=== PATIENT | female | born 1970 | race Caucasian/White ===

== ENCOUNTER 2016-10-14 22:02 | Emergency (ER) | payer BC ==
[2016-10-14] MEDS ORDERED: Phenergan 25 MG INJ IM ONE (22:29)
[2016-10-14] MEDS ORDERED: Hydromorphone 1 mg/ml Ampule IM ONE (22:29)
--- NOTE | 2016-10-14 22:35 | ERPHSYRPT ---
- History of Present Illness Time Seen by Provider: 10/14/16 22:24 Historian: patient Exam Limitations: no limitations Patient Subjective Stated Complaint: SITTING AT HOME TYPING ON COMPUTER WHEN CRAMPING BEGAN, STATES FEELS LIKE SHE IS SITTING ON A BASEBALL BAT Triage Nursing Assessment: PT AOX3, AMBULATED TO COT WITHOUT ANY DIFFICULTIES, PUPILS PERRL, RADIAL PULSES STRONG AND EQUAL, BOWEL SOUNDS NORMOACTIVEX4 Physician History: ABOUT 90 MINUTES AGO PT STARTED WITH SHARP LOWER MID ABDOMINAL/PELVIC PAIN WITH NAUSEA. LBM WAS TONIGHT & WNL. PT DENIES FEVER, CHEST PAIN, SHORTNESS OF AIR; ADMITS TO CHRONIC COUGH.L LMP = 1.5 WEEKS AGO. Allergies/Adverse Reactions: No Known Drug Allergies Allergy (Verified 10/14/16 22:15) Hx Tetanus, Diphtheria Vaccination/Date Given: Yes Hx Influenza Vaccination/Date Given: Yes Hx Pneumococcal Vaccination/Date Given: Yes Immunizations Up to Date: Yes - Review of Systems Constitutional: No Fever Respiratory: Cough, No Dyspnea Cardiac: No Chest Pain Abdominal/Gastrointestinal: Abdominal Pain, Nausea All Other Systems: Reviewed and Negative - Past Medical History Pertinent Past Medical History: No - Past Surgical History Past Surgical History: Yes Female Surgical History: Section - Social History Smoking Status: Current every day smoker Drug Use: none Patient Lives Alone: No - Nursing Vital Signs Nursing Vital Signs: Initial Vital Signs Temperature 98.7 F Temperature Source Oral Pulse Rate 94 Respiratory Rate 16 Blood Pressure [] 122/58 Pain Intensity 0 - Physical Exam General Appearance: alert Eye Exam: PERRL/EOMI Ears, Nose, Throat Exam: TMs normal, pharynx normal, moist mucous membranes Neck Exam: normal inspection Respiratory Exam: airway intact Cardiovascular Exam: normal heart sounds Gastrointestinal/Abdomen Exam: soft, normal bowel sounds, tenderness (MINIMAL SUPRAPUBIC TENDERNESS) Back Exam: normal inspection Extremity Exam: normal inspection, No pedal edema Neurologic Exam: alert, cooperative Skin Exam: warm, dry SpO2 Interpretation: normal SpO2: 97 Oxygen Delivery: Room Air - Course Nursing assessment & vital signs reviewed: Yes - CT Exams Abdomen/Pelvis CT Interpretation: Tele-radiologist Report (NO ACUTE FINDINGS) - Radiology Ultrasound Exam Pelvis Ultrasound: Other (TECH REPORT: NO OVARIAN TORSION.) Ordered Tests: Active Orders 24 hr Category Date Time Status ABDOMEN AND PELVIS W/0 CONTRAS [CT] Stat Exams 10/14/16 23:02 Taken PELVIC [US] Stat Exams 10/15/16 00:24 Taken AMYLASE Stat Lab 10/14/16 22:55 Completed CBC W DIFF Stat Lab 10/14/16 22:55 Completed CMP Stat Lab 10/14/16 22:55 Completed HCG QUALITATIVE,SERUM Stat Lab 10/14/16 22:55 Completed LIPASE Stat Lab 10/14/16 22:55 Completed UA Stat Lab 10/14/16 22:00 Completed Medication Summary Discontinued Medications Generic Name Dose Route Start Last Admin Trade Name Naila PRN Reason Stop Dose Admin Hydromorphone HCl 1 mg 10/14/16 22:29 10/14/16 22:45 Hydromorphone 1 Mg/Ml Ampule IM 10/14/16 22:30 1 mg STAT ONE Administration Hydromorphone HCl Confirm 10/14/16 22:37 Hydromorphone 1 Mg/Ml Ampule Administered 10/14/16 22:38 Dose 1 mg .ROUTE .STK-MED ONE Promethazine HCl 25 mg 10/14/16 22:29 10/14/16 22:41 Phenergan 25 Mg Inj IM 10/14/16 22:30 25 mg STAT ONE Administration Promethazine HCl Confirm 10/14/16 22:37 Phenergan 25 Mg Inj Administered 10/14/16 22:38 Dose 25 mg .ROUTE .STK-MED ONE Lab/Rad Data: Laboratory Result Diagrams 10/14/16 22:55 10/14/16 22:55 Laboratory Results 10/14/16 10/14/16 10/14/16 Range/Units 22:55 22:55 22:55 WBC 11.0 H (4.0-10.5) K/mm3 RBC 5.27 (4.1-5.4) M/mm3 Hgb 14.5 (12.0-16.0) gm/dl Hct 44.2 (35-47) % MCV 83.9 (78-100) fl MCH 27.5 (26-32) pg MCHC 32.8 (32-36) g/dl RDW 14.9 H (11.5-14.0) % Plt Count 253 (150-450) K/mm3 MPV 12.2 H (6-9.5) fl Gran % 68.6 H (36.0-66.0) % Lymphocytes % 21.1 L (24.0-44.0) % Monocytes % 6.2 (0.0-12.0) % Eosinophils % 3.6 (0.00-5.0) % Basophils % 0.5 (0.0-0.4) % Basophils # 0.06 (0-0.4) Sodium 135 L (136-145) mEq/L Potassium 4.2 (3.5-5.1) mEq/L Chloride 100 (98-107) mEq/L Carbon Dioxide 25.2 (21-32) mEq/L Anion Gap 13.9 (5-15) MEQ/L BUN 13 (9-20) mg/dL Creatinine 0.89 (0.55-1.30) mg/dl Estimated GFR > 60 ML/MIN Glucose 303 H (70-110) MG/DL Calcium 8.8 (8.5-10.1) mg/dL Total Bilirubin 0.1 L (0.2-1.0) mg/dL AST 27 (15-37) U/L ALT 47 (12-78) U/L Alkaline Phosphatase 92 (46-116) U/L Serum Total Protein 7.7 (6.4-8.2) gm/dL Albumin 3.4 (3.4-5.0) g/dL Amylase 50 (25-115) U/L Lipase 222 (73-393) U/L Serum , Qual NEGATIVE (Negative) Ur Collection Type Urine Color (YELLOW) Urine Appearance (CLEAR) Urine pH (5-6) Ur Specific Cameron (1.005-1.025) Urine Protein (Negative) Urine Glucose (UA) (NEGATIVE) mg/dL Urine Ketones (NEGATIVE) Urine Nitrite (NEGATIVE) Urine Bilirubin (NEGATIVE) Urine Urobilinogen (0-1) mg/dL Urine WBC (Auto) (NEGATIVE) Urine RBC (Auto) (0-5) Kelvin/ul Specimen Received 10/14/16 Range/Units 22:00 WBC (4.0-10.5) K/mm3 RBC (4.1-5.4) M/mm3 Hgb (12.0-16.0) gm/dl Hct (35-47) % MCV (78-100) fl MCH (26-32) pg MCHC (32-36) g/dl RDW (11.5-14.0) % Plt Count (150-450) K/mm3 MPV (6-9.5) fl Gran % (36.0-66.0) % Lymphocytes % (24.0-44.0) % Monocytes % (0.0-12.0) % Eosinophils % (0.00-5.0) % Basophils % (0.0-0.4) % Basophils # (0-0.4) Sodium (136-145) mEq/L Potassium (3.5-5.1) mEq/L Chloride (98-107) mEq/L Carbon Dioxide (21-32) mEq/L Anion Gap (5-15) MEQ/L BUN (9-20) mg/dL Creatinine (0.55-1.30) mg/dl Estimated GFR ML/MIN Glucose (70-110) MG/DL Calcium (8.5-10.1) mg/dL Total Bilirubin (0.2-1.0) mg/dL AST (15-37) U/L ALT (12-78) U/L Alkaline Phosphatase (46-116) U/L Serum Total Protein (6.4-8.2) gm/dL Albumin (3.4-5.0) g/dL Amylase (25-115) U/L Lipase (73-393) U/L Serum , Qual (Negative) Ur Collection Type CLEAN CATCH Urine Color YELLOW (YELLOW) Urine Appearance CLEAR (CLEAR) Urine pH 6.5 (5-6) Ur Specific Cameron 1.015 (1.005-1.025) Urine Protein NEGATIVE (Negative) Urine Glucose (UA) >=1000 (NEGATIVE) mg/dL Urine Ketones TRACE (NEGATIVE) Urine Nitrite NEGATIVE (NEGATIVE) Urine Bilirubin NEGATIVE (NEGATIVE) Urine Urobilinogen 0.2 (0-1) mg/dL Urine WBC (Auto) NEGATIVE (NEGATIVE) Urine RBC (Auto) NEGATIVE (0-5) Kelvin/ul Specimen Received 10/14/16:2200 - Departure Time of Disposition: 01:50 Departure Disposition: Home Clinical Impression: ABDOMINAL PAIN Condition: Fair Critical Care Time: No Referrals: QUENTIN RONDON FNP [Primary Care Provider] - Instructions: Abdominal Pain-Adult Additional Instructions: FOLLOW UP WITH PRIVATE DOCTOR TOMORROW. Prescriptions: Promethazine HCl 25 mg [Phenergan 25 mg] 25 mg PO Q4H PRN PRN #14 tablet PRN Reason: Nausea/Vomiting
[2016-10-14 22:37] LABS: COMPLETE URINE MICROSCOPIC? NO; Collection Type CLEAN CATCH; Ph 6.5 (5-6)
[2016-10-14] MEDS ORDERED: Phenergan 25 MG INJ ONE (22:37)
[2016-10-14] MEDS ORDERED: Hydromorphone 1 mg/ml Ampule ONE (22:37)
[2016-10-14 23:00] LABS: BASOPHIL % 0.5 % (0.0-0.4); Eosinophil % 3.6 % (0.00-5.0); Granulocytes % 68.6 % (36.0-66.0); Lymphocytes % 21.1 % (24.0-44.0); Mean Cell Volume 83.9 fl (78-100); Mean Corpuscular Hemoglobin 27.5 pg (26-32); Mean Platelet Volume 12.2 fl (6-9.5); Monocytes % 6.2 % (0.0-12.0); Platelet Count 253 K/mm3 (150-450); Red Blood Count 5.27 M/mm3 (4.1-5.4); Red Cell Distribution Width 14.9 % (11.5-14.0)
[2016-10-14 23:24] LABS: ALBUMIN 3.4 g/dL (3.4-5.0); ALKALINE PHOSPHATASE 92 U/L (46-116); ANION GAP 13.9 MEQ/L (5-15); BILIRUBIN,TOTAL 0.1 mg/dL (0.2-1.0); BLOOD UREA NITROGEN 13 mg/dL (9-20); CHLORIDE 100 mEq/L (98-107); Carbon Dioxide 25.2 mEq/L (21-32); Glucose 303 MG/DL (70-110); LIPASE 222 U/L (73-393); Potassium 4.2 mEq/L (3.5-5.1); SGOT/AST 27 U/L (15-37); SGPT/ALT 47 U/L (12-78); SODIUM 135 mEq/L (136-145); Total Protein 7.7 gm/dL (6.4-8.2)
[2016-10-15 01:59] VITALS: BP 115/75; PULSE 82; O2SAT 93
--- NOTE | 2016-10-15 09:01 | XRAY ---
Indication: Lower pelvic pain. History of ovarian cyst rupture. Multiple contiguous axial images obtained through the abdomen and pelvis without contrast as ordered. Comparison: None. Lung bases clear. Heart is not enlarged. Noncontrasted stomach and bowel loops appear nonobstructed. Mild scattered colonic diverticulosis greatest in the descending colon. Normal appendix. No free fluid/air. A few tiny calcified uterine fibroids, fatty liver, 1.8 cm left adrenal adenoma, and a few calcified splenic granulomas. Remaining liver, gallbladder, pancreas, spleen, right adrenal gland, kidneys, ureters, bladder, uterus, and ovaries appear unremarkable for noncontrast exam. Mild aortoiliac calcifications without AAA. Osseous structures intact with mild degenerative changes throughout the spine. Impression: 1. No acute intra-abdominal/pelvic abnormalities on this noncontrast exam. 2. Colonic diverticulosis without diverticulitis. 3. Incidental fatty liver, left adrenal adenoma, and tiny calcified uterine fibroids. Comment: Preliminary interpretation was made by [facility]. Left adrenal adenoma and calcified uterine fibroids not reported and are incidental findings. CT DI 19.26
--- NOTE | 2016-10-15 09:03 | XRAY ---
Indication: Pelvic pain. Two-dimensional transabdominal only pelvic ultrasound was performed. Comparison: None Urinary bladder is not adequately distended producing poor acoustic window. Uterus is anteverted measuring 10.0 x 4.6 x 6.1 cm. No focal solid/cystic uterine mass. Endometrial stripe measures 4.9 mm in thickness. No endometrial cavity mass or fluid collection. Right ovary measures 3.6 x 3.0 x 4.7 cm and the left measures 2.9 x 2.3 x 2.7 cm. Normal perfusion bilaterally. No suspicious adnexal mass or free fluid. Impression: Negative transabdominal pelvic sonogram. Comment: Preliminary report was given.
== END 2016-10-15 01:58 | disposition home or self-care (01) ==
LOC: ED 22:02
DX: R10.30 Lower abdominal pain, unspecified (principal); R11.0 Nausea; R05 Cough
CPT/HCPCS: 36415; 74176; 76856; 80053; 81002; 82150; 83690; 84703; 85025; 96372; 99283; 99284; J1170; J2550

== ENCOUNTER 2018-04-02 09:52 | Emergency (ER) | payer BC ==
[2018-04-02 10:19] VITALS: O2SAT 91
[2018-04-02] MEDS ORDERED: DUONEB 0.5-3 MG/3 ml Neb IH ONE (10:31)
[2018-04-02] MEDS: solu-MEDROL 125 MG IM ONE (10:31)
[2018-04-02] MEDS ORDERED: Sodium Chloride 0.9% 1000 ML 1,000 ML ONE (10:34)
[2018-04-02] MEDS ORDERED: solu-MEDROL 125 MG ONE (10:34)
[2018-04-02] MEDS: DUONEB 0.5-3 MG/3 ml Neb IH ONE (10:37)
[2018-04-02] MEDS: Sodium Chloride 0.9% 1000 ML 1,000 ML IV STA (10:39)
[2018-04-02 10:40] LABS: BASOPHIL % 0.6 % (0.0-0.4); Basophil (Absolute #) 0.04 (0-0.4); Eosinophil % 3.1 % (0.00-5.0); Eosinophil (Absolute #) 0.21 (0-0.5); Granulocyte Absolute (ANC) 4.49 (1.4-6.9); Hematocrit 46.4 % (35-47); Hemoglobin 16.1 gm/dl (12.0-16.0); Lymphocyte (Absolute #) 1.29 (1.0-4.6); Mean Cell Volume 85.1 fl (78-100); Mean Corpuscular Hemoglobin 29.5 pg (26-32); Mean Corpuscular Hgb Concent. 34.7 g/dl (32-36); Mean Platelet Volume 11.9 fl (6-9.5); Monocyte (Absolute #) 0.77 (0.0-1.3); Monocytes % 11.3 % (0.0-12.0); Platelet Count 263 K/mm3 (150-450); Red Blood Count 5.45 M/mm3 (4.1-5.4); Red Cell Distribution Width 14.8 % (11.5-14.0); White Blood Count 6.8 K/mm3 (4.0-10.5)
[2018-04-02] MEDS: solu-MEDROL 125 MG IV ONE (10:40)
--- NOTE | 2018-04-02 10:47 | ERPHSYRPT ---
- History of Present Illness Time Seen by Provider: 04/02/18 10:29 Source: patient Exam Limitations: no limitations Patient Subjective Stated Complaint: pt reports shortness of breath and chest tightness. pt reports inability to take a deep breath. Triage Nursing Assessment: pt is aox3, pupils perrl, pt afebrile, pt is short of breath at rest, upon auscultation wheezes are heard throughout all garcía, anterior and posterior. persistent cough noted. moderate amount of thick, yellow sputum. radial pulses are strong and equal. heart sounds are strong and regular. pt skin pink warm dry. no edema apprectiated. cap refill < 3 seconds. Physician History: pt reports shortness of breath and chest tightness. pt reports inability to take a deep breath Timing/Duration: day(s) (2-3 days) Activities at Onset: none Severity of Dyspnea-Max: moderate Severity of Dyspnea-Current: moderate Possible Cause: frequent episodes Modifying Factors: Improves With: nothing Associated Symptoms: cough, painful breathing International travel in last 2 weeks: No Allergies/Adverse Reactions: No Known Drug Allergies Allergy (Verified 04/02/18 10:19) Hx Tetanus, Diphtheria Vaccination/Date Given: No Hx Influenza Vaccination/Date Given: Yes Hx Pneumococcal Vaccination/Date Given: Yes Immunizations Up to Date: Yes - Review of Systems Constitutional: No Fever, No Chills Eyes: No Symptoms Ears, Nose, & Throat: No Symptoms Respiratory: Cough, Dyspnea, Dyspnea on Exertion (KYLE), Wheezing Cardiac: No Chest Pain, No Edema, No Syncope Abdominal/Gastrointestinal: No Abdominal Pain, No Nausea, No Vomiting, No Diarrhea Genitourinary Symptoms: No Dysuria Musculoskeletal: No Back Pain, No Neck Pain Skin: No Rash Neurological: No Dizziness, No Focal Weakness, No Sensory Changes Psychological: No Symptoms Endocrine: No Symptoms All Other Systems: Reviewed and Negative - Past Medical History Pertinent Past Medical History: No Respiratory History: Pneumonia - Past Surgical History Past Surgical History: Yes Female Surgical History: Section Other Surgical History: c section x4, D&C - Social History Smoking Status: Current every day smoker Drug Use: none Patient Lives Alone: No - Female History Hx Last Menstrual Period: 03/29/18 Hx Now: No - Nursing Vital Signs Nursing Vital Signs: Initial Vital Signs Temperature 97.7 F 04/02/18 09:54 Pulse Rate 93 H 04/02/18 09:54 Respiratory Rate 24 04/02/18 09:54 Blood Pressure 134/87 04/02/18 09:54 O2 Sat by Pulse Oximetry 91 L 04/02/18 09:54 Pain Scale Pain Intensity 0 - Physical Exam General Appearance: no apparent distress, alert Eye Exam: PERRL/EOMI Neck Exam: normal inspection, supple Respiratory Exam: diminished breath sounds, accessory muscle use, prolonged expirations, rhonchi, wheezing Cardiovascular/Chest Exam: normal heart sounds, regular rate/rhythm Abdominal/Gastrointestinal Exam: soft, No tenderness, No distention, No mass Extremity Exam: non-tender, normal range of motion, normal inspection, no calf tenderness, no pedal edema Neurologic Exam: alert, oriented x 3, cooperative, certified novell engineer II-XII nml as tested, sensation nml, No motor deficits Skin Exam: normal color, warm, No dry SpO2 Interpretation: borderline oxygenation SpO2: 91 Oxygen Delivery: Room Air - Course Nursing assessment & vital signs reviewed: Yes - Radiology Exams Chest X-ray Interpretation: Reviewed by me, No Pneumonia, No Infiltrates Ordered Tests: Active Orders 24 hr Category Date Time Status Oxygen-ED Only NASAL CANNULA 2 lpm Care 04/02/18 10:25 Active CHEST 2 VIEWS (PA AND LAT) Stat Exams 04/02/18 10:25 Taken BMP Stat Lab 04/02/18 10:06 Completed CBC W DIFF Stat Lab 04/02/18 10:06 Completed Peak Expiratory Flow Rate ONCE RT 04/02/18 10:37 Completed Respiratory Nebulizer STAT RT 04/02/18 10:26 Completed Respiratory Therapy Assessment DAILY RT 04/02/18 10:38 Completed Medication Summary Discontinued Medications Generic Name Dose Route Start Last Admin Trade Name Freq PRN Reason Stop Dose Admin Albuterol/Ipratropium 3 ml 04/02/18 10:25 04/02/18 10:37 Duoneb 0.5-3 Mg/3 Ml Neb IH 04/02/18 10:26 3 ml STAT ONE Administration Albuterol/Ipratropium Confirm 04/02/18 10:31 Duoneb 0.5-3 Mg/3 Ml Neb Administered 04/02/18 10:32 Dose 3 ml IH .STK-MED ONE Sodium Chloride 1,000 mls @ 999 mls/hr 04/02/18 10:32 04/02/18 10:39 Sodium Chloride 0.9% 1000 Ml IV 04/02/18 11:32 999 mls/hr .Q1H1M STA Administration Sodium Chloride Confirm 04/02/18 10:34 Sodium Chloride 0.9% 1000 Ml Administered 04/02/18 10:35 Dose 1,000 mls @ ud .ROUTE .STK-MED ONE Ceftriaxone Sodium/Dextrose 1 g in 50 mls @ 100 mls/hr 04/02/18 11:15 11:33 Rocephin 1 Gm-D5w 50 Ml Bag IV 04/02/18 11:44 100 ml/hr STAT STA 100 mls/hr Administration Ceftriaxone Sodium/Dextrose Confirm 04/02/18 11:22 Rocephin 1 Gm-D5w 50 Ml Bag Administered 04/02/18 11:23 Dose 1 g in 50 mls @ ud IV .STK-MED ONE Methylprednisolone Sodium Succinate 125 mg 04/02/18 10:25 04/02/18 10:31 Solu-Medrol 125 Mg IM 04/02/18 10:26 Not Given STAT ONE Methylprednisolone Sodium Succinate 125 mg 04/02/18 10:32 04/02/18 10:40 Solu-Medrol 125 Mg IV 04/02/18 10:33 125 mg STAT ONE Administration Methylprednisolone Sodium Succinate Confirm 04/02/18 10:34 Solu-Medrol 125 Mg Administered 04/02/18 10:35 Dose 125 mg .ROUTE .STK-MED ONE Lab/Rad Data: Laboratory Result Diagrams 04/02/18 10:06 04/02/18 10:06 Laboratory Results 04/02/18 04/02/18 04/02/18 Range/Units 10:06 10:06 10:06 WBC 6.8 (4.0-10.5) K/mm3 RBC 5.45 H (4.1-5.4) M/mm3 Hgb 16.1 H (12.0-16.0) gm/dl Hct 46.4 (35-47) % MCV 85.1 (78-100) fl MCH 29.5 (26-32) pg MCHC 34.7 (32-36) g/dl RDW 14.8 H (11.5-14.0) % Plt Count 263 (150-450) K/mm3 MPV 11.9 H (6-9.5) fl Gran % 66.0 (36.0-66.0) % Eos # (Auto) 0.21 (0-0.5) Absolute Lymphs (auto) 1.29 (1.0-4.6) Absolute Monos (auto) 0.77 (0.0-1.3) Lymphocytes % 19.0 L (24.0-44.0) % Monocytes % 11.3 (0.0-12.0) % Eosinophils % 3.1 (0.00-5.0) % Basophils % 0.6 (0.0-0.4) % Absolute Granulocytes 4.49 (1.4-6.9) Basophils # 0.04 (0-0.4) Sodium 139 (137-145) mmol/L Potassium 4.0 (3.5-5.1) mmol/L Chloride 101 (98-107) mmol/L Carbon Dioxide 26 (22-30) mmol/L Anion Gap 15.7 H (5-15) MEQ/L BUN 12 (7-17) mg/dL Creatinine 0.53 (0.52-1.04) mg/dL Estimated GFR > 60.0 ML/MIN Glucose 180 H (74-106) mg/dL Hemoglobin A1c 7.26 H (4.5-6.0) % Calcium 9.3 (8.4-10.2) mg/dL - Progress Progress: improved Air Movement: good Blood Culture(s) Obtained: No Antibiotics given: Yes Counseled pt/family regarding: lab results, diagnosis, need for follow-up, rad results, smoking cessation - Departure Time of Disposition: 11:47 Departure Disposition: Home Clinical Impression: Acute bronchitis Qualifiers: Bronchitis organism: unspecified organism Qualified Code(s): J20.9 - Acute bronchitis, unspecified Type 2 diabetes mellitus Qualifiers: Diabetes mellitus exterminator termite insulin use: unspecified exterminator termite insulin use status Diabetes mellitus complication status: without complication Qualified Code(s): E11.9 - Type 2 diabetes mellitus without complications Condition: Stable Critical Care Time: No Referrals: Provider,Unknown [Primary Care Provider] - Instructions: Chronic Obstructive Pulmonary Disease, Type 2 Diabetes, Quitting Smoking for Older Adults, Shortness of Breath (Dyspnea) (DC), Acute Bronchitis, Quitting Smoking, Exacerbation of COPD (DC), Drugs to Help You Stop Using Tobacco Additional Instructions: Please follow the instructions given to you. Please take your medication as prescribed if given. If symptoms recur or get worse, come back to the emergency room if you cannot reach your primary care physician, or call your primary care physician for an appointment. Again if your symptoms get worse, come back to the emergency room. Thanks for visiting emergency room, and let us take care of you. FLOYD HELM was seen on 04/02/18 n the Emergency Room. At that time you were treated for an emergent condition, during your visit Laboratory, Radiology and/or other procedures may have been ordered. It is very important that you follow-up with your Primary Care Physician Unknown Provider within the next 24- 48 hours to review your Emergency Room visit and the final results of testing that was ordered. Some test results such as Urine Cultures, Blood Cultures, and other cultures if ordered will not be finalized for 24-48 hours. If you do not have a Primary Care Provider please call the medical records department at [phone] to obtain a copy of your results or you may sign into our patient portal to obtain these results by visiting us @ [email or web address] and completing the following steps: 1. Click on the Patient Portal link 2. Click the Patient Self Enrollment Link to complete the enrollment form and entering your 3. Once the enrollment form is completed you will receive an email with a temporary ID and password at the email address you provided. 4. Next choose a user name and password. Your user name must be at least 4 characters long and your password must be at least 4 characters long. 5. Choose a security question from the list and provide your answer to the question. If you already have signed into the Health Portal you may access your Health Care Information 21/03 by the following steps: 1. Login to our website @ [email or web address] 2. Enter your original user name and password. FAQS The [facility] Health Portal is an online tool that contains your Lab Results, Radiology Reports, Visit History, Discharge Instructions and Health Summary Lab and Radiology Results will not be available for 72 hours on the portal. The Portal is a secure site, passwords are encryted and URLs are re-written so they cannot be copied and pasted. You and authorized family members are the only ones who can access your Portal. Also there is a timeout feature that protects your information if you leave the Portal page open. If you have technical difficulty please use the Contact Us link on the page this will allow you to submit any questions you have regarding the Portal or you may contact the Medical Record Department at [phone]. Prescriptions: Amoxicillin 500 mg PO TID #30 tablet Metformin HCl 500 mg [Glucophage 500 MG] 500 mg PO BIDWM #60 tablet Methylprednisolone Packet [Medrol Dosepack] 4 mg PO UD #30 packet
[2018-04-02 10:53] LABS: ANION GAP 15.7 MEQ/L (5-15); BLOOD UREA NITROGEN 12 mg/dL (7-17); CHLORIDE 101 mmol/L (98-107); Calcium 9.3 mg/dL (8.4-10.2); Carbon Dioxide 26 mmol/L (22-30); Creatinine 1 0.53 mg/dL (0.52-1.04); Glucose 180 mg/dL (74-106); SODIUM 139 mmol/L (137-145)
[2018-04-02] MEDS ORDERED: ROCEPHIN 1 Gm-D5w 50 ml Bag** 1 G/50 ML IVPB IV ONE (11:22)
[2018-04-02] MEDS: ROCEPHIN 1 Gm-D5w 50 ml Bag** 1 G/50 ML IVPB IV STA (11:33)
[2018-04-02 12:12] VITALS: BP 120/74; PULSE 74
--- NOTE | 2018-04-02 19:11 | XRAY ---
Indication: Short of breath. Comparison: None PA/lateral chest hyperinflated and clear with a few incidental calcified granulomas. Heart and mediastinal structures within normal limits. Bony thorax intact with mild degenerative changes. Impression: Nonacute hyperinflated chest with chronic features.
== END 2018-04-02 12:10 | disposition home or self-care (01) ==
LOC: ED 09:52
DX: J20.9 Acute bronchitis, unspecified (principal); Z72.0 Tobacco use
CPT/HCPCS: 36415; 71046; 80048; 83036; 85025; 94150; 94640; 96360; 96365; 96374; 99284; J0696; J2930; A9270-GY

== ENCOUNTER 2019-02-12 20:34 | Emergency (ER) | payer BC ==
--- NOTE | 2019-02-12 21:01 | ERPHSYRPT ---
- History of Present Illness Time Seen by Provider: 02/12/19 20:49 Source: patient Exam Limitations: no limitations Physician History: Pt started c/o left posterior shoulder and neck, upper back pain since yesterday. She denies direct or indirect injury, no arm weakness, or numbness, loss of strength, but c/o dull aching. She had similar symptoms in her left arm in the past few times, denies any workups. Occurred: yesterday Method of Injury: unknown Quality: constant Severity of Pain-Max: moderate Severity of Pain-Current: moderate Extremities Pain Location: shoulder: left, arm: left (aching, pain) Associated Symptoms: neck pain Allergies/Adverse Reactions: No Known Drug Allergies Allergy (Verified 04/02/18 10:19) Hx Tetanus, Diphtheria Vaccination/Date Given: No Hx Influenza Vaccination/Date Given: Yes Hx Pneumococcal Vaccination/Date Given: Yes - Review of Systems Constitutional: No Symptoms Ears, Nose, & Throat: No Symptoms Respiratory: No Symptoms Cardiac: No Symptoms Genitourinary Symptoms: No Symptoms Musculoskeletal: Neck Pain, Other (left arm pain) Skin: No Symptoms All Other Systems: Reviewed and Negative - Past Medical History Pertinent Past Medical History: No Respiratory History: Pneumonia - Past Surgical History Past Surgical History: Yes Female Surgical History: Section Other Surgical History: c section x4, D&C - Social History Smoking Status: Current every day smoker Drug Use: none Patient Lives Alone: No - Nursing Vital Signs Nursing Vital Signs: Initial Vital Signs Temperature 98.2 F 02/12/19 21:03 Pulse Rate 95 H 02/12/19 21:03 Respiratory Rate 17 02/12/19 21:03 Blood Pressure 156/93 02/12/19 21:03 O2 Sat by Pulse Oximetry 93 L 02/12/19 21:03 Pain Scale Pain Intensity 3 - Physical Exam General Appearance: no apparent distress Eyes, Ears, Nose, Throat Exam: normal ENT inspection, pharynx normal Neck Exam: normal inspection, supple, full range of motion, other (left trapezoid tenderness, no spasms.), No carotid bruit, No JVD, No lymphadenopathy (R), No lymphadenopathy (L) Cardiovascular/Respiratory Exam: chest non-tender, normal breath sounds, regular rate/rhythm, heart sounds normal, no ecchymosis, no JVD, no respiratory distress Abdominal Exam: non-tender, soft, no organomegaly Back Exam: normal inspection, No CVA tenderness, No vertebral tenderness, No rash, No point tenderness Shoulder Exam: normal inspection, no evidence of injury, normal ROM DTR - Upper Extremity Exam: bicep (R): 3+, bicep (L): 3+, tricep (R): 3+, tricep (L): 3+ Neuro/Tendon Exam: normal sensation, normal motor functions Mental Status Exam: alert, oriented x 3, cooperative Skin Exam: normal color, warm, dry, No rash, No petechiae, No cyanosis SpO2 Interpretation: normal O2 Delivery: Room Air - Course Nursing assessment & vital signs reviewed: Yes EKG Interpreted by Me: RATE, Sinus Rhythm (79/min), NORMAL AXIS, NORMAL INTERVALS, NORMAL QRS, Non-specific ST Changes - Radiology Exams C-Spine X-ray Interpretation: Interpreted by me, Negative Left Shoulder X-ray Interpretation: Interpreted by me, Negative Ordered Tests: Active Orders 24 hr Category Date Time Status Public Services Librarian STAT Care 02/12/19 20:55 Active EKG-ER Only STAT Care 02/12/19 20:55 Active IV Insertion STAT Care 02/12/19 20:55 Active CERVICAL SPINE (2 OR 3 VIEW) Stat Exams 02/12/19 20:56 Taken SHOULDER Stat Exams 02/12/19 20:56 Taken CBC W DIFF Stat Lab 02/12/19 21:15 Completed CK-Creatinine Phosphokinase Stat Lab 02/12/19 21:15 Completed CMP Stat Lab 02/12/19 21:15 Completed TROPONIN Q3H Lab 02/12/19 21:15 Completed TROPONIN Q3H Lab 02/13/19 00:00 Ordered TROPONIN Q3H Lab 02/13/19 03:00 Ordered TROPONIN Q3H Lab 02/13/19 06:00 Ordered TROPONIN Q3H Lab 02/13/19 09:00 Ordered Lab/Rad Data: Laboratory Result Diagrams 02/12/19 21:15 02/12/19 21:15 Laboratory Results 02/12/19 02/12/19 02/12/19 Range/Units 21:15 21:15 21:15 WBC 8.8 (4.0-10.5) K/mm3 RBC 5.10 (4.1-5.4) M/mm3 Hgb 13.8 (12.0-16.0) gm/dl Hct 42.0 (35-47) % MCV 82.4 (78-100) fl MCH 27.1 (26-32) pg MCHC 32.9 (32-36) g/dl RDW 15.7 H (11.5-14.0) % Plt Count 256 (150-450) K/mm3 MPV 11.8 H (6-9.5) fl Gran % 86.9 H (36.0-66.0) % Eos # (Auto) 0.03 (0-0.5) Absolute Lymphs (auto) 0.93 L (1.0-4.6) Absolute Monos (auto) 0.19 (0.0-1.3) Lymphocytes % 10.5 L (24.0-44.0) % Monocytes % 2.1 (0.0-12.0) % Eosinophils % 0.3 (0.00-5.0) % Basophils % 0.2 (0.0-0.4) % Absolute Granulocytes 7.67 H (1.4-6.9) Basophils # 0.02 (0-0.4) Sodium 136 L (137-145) mmol/L Potassium 4.5 (3.5-5.1) mmol/L Chloride 101 (98-107) mmol/L Carbon Dioxide 23 (22-30) mmol/L Anion Gap 17.2 H (5-15) MEQ/L BUN 14 (7-17) mg/dL Creatinine 0.50 L (0.52-1.04) mg/dL Estimated GFR > 60.0 ML/MIN Glucose 233 H (74-106) mg/dL Calcium 10.0 (8.4-10.2) mg/dL Total Bilirubin 0.30 (0.2-1.3) mg/dL AST 26 (14-36) U/L ALT 28 (0-35) U/L Alkaline Phosphatase 81 (38-126) U/L Creatine Kinase 89 (30-135) U/L Troponin I < 0.012 (0.000-0.034) ng/mL Serum Total Protein 7.9 (6.3-8.2) g/dL Albumin 4.1 (3.5-5.0) g/dL - Progress Progress: unchanged Progress Note: 02/12/19 22:05 Pt and her were educated about out findings, she is going to be discharged on PO Prednisone,, Ultram and Flexeril to rest x 2-3 days, apply moist heat to her neck and follow up with her physician in 2-3 days. Counseled pt/family regarding: lab results, diagnosis, need for follow-up, rad results, smoking cessation - Departure Departure Disposition: Home Clinical Impression: Cervical radiculopathy Condition: Stable Critical Care Time: No Referrals: DEA DOOLEY NP [Primary Care Provider] - Instructions: Radiculopathy (DC) Additional Instructions: Rest x 2-3 days, apply moist heat to painful muscles, and follow up with your physician in 2-3 days, return if severe pain, headaches, sudden arm weakness, numbness, loss of strength! Forms: Work/School Release Form Prescriptions: Cyclobenzaprine HCl 10 mg [Cyclobenzaprine 10 MG] 10 mg PO TID #30 tablet Prednisone 20 mg [Deltasone 20 mg] 20 mg PO BID 5 Days #10 tablet Tramadol HCl 50 mg [Ultram 50 mg] 50 mg PO Q6H PRN #15 tablet PRN Reason: Pain
[2019-02-12 21:19] LABS: BASOPHIL % 0.2 % (0.0-0.4); Basophil (Absolute #) 0.02 (0-0.4); Eosinophil % 0.3 % (0.00-5.0); Eosinophil (Absolute #) 0.03 (0-0.5); Granulocyte Absolute (ANC) 7.67 (1.4-6.9); Granulocytes % 86.9 % (36.0-66.0); Hemoglobin 13.8 gm/dl (12.0-16.0); Lymphocyte (Absolute #) 0.93 (1.0-4.6); Lymphocytes % 10.5 % (24.0-44.0); Mean Cell Volume 82.4 fl (78-100); Mean Corpuscular Hemoglobin 27.1 pg (26-32); Mean Corpuscular Hgb Concent. 32.9 g/dl (32-36); Mean Platelet Volume 11.8 fl (6-9.5); Monocytes % 2.1 % (0.0-12.0); Platelet Count 256 K/mm3 (150-450); Red Cell Distribution Width 15.7 % (11.5-14.0); White Blood Count 8.8 K/mm3 (4.0-10.5)
[2019-02-12 21:30] LABS: ALBUMIN 4.1 g/dL (3.5-5.0); ALKALINE PHOSPHATASE 81 U/L (38-126); ANION GAP 17.2 MEQ/L (5-15); BLOOD UREA NITROGEN 14 mg/dL (7-17); CHLORIDE 101 mmol/L (98-107); CK-Creatinine Phosphokinase 89 U/L (30-135); Carbon Dioxide 23 mmol/L (22-30); Glucose 233 mg/dL (74-106); Potassium 4.5 mmol/L (3.5-5.1); SGOT/AST 26 U/L (14-36); SGPT/ALT 28 U/L (0-35); SODIUM 136 mmol/L (137-145); Total Protein 7.9 g/dL (6.3-8.2)
[2019-02-12 22:30] VITALS: BP 105/72; PULSE 74; O2SAT 97
[2019-02-12] MEDS ORDERED: ULTRAM 50 MG PO ONE (22:33)
[2019-02-12] MEDS ORDERED: ULTRAM 50 MG ONE (22:34)
--- NOTE | 2019-02-13 09:14 | XRAY ---
Indication: Pain 2 weeks. No known injury. Comparison: None 3 views of the left shoulder demonstrates moderate AC degenerative arthropathy and tiny faint ossifications adjacent to greater tuberosity of the humerus either degenerative versus old injury/inflammation. No other bony, articular, or soft tissue abnormalities.
--- NOTE | 2019-02-13 09:16 | XRAY ---
Indication: Neck pain 2 weeks. No known injury. Comparison: None 4 views of the cervical spine demonstrates normal alignment with minimal/mild C3-C7 endplate spurring and minimal right carotid calcifications. Vertebral body heights/disc spaces maintained. No acute fracture, subluxation, or soft tissue abnormalities.
== END 2019-02-12 22:39 | disposition home or self-care (01) ==
LOC: ED 20:34
DX: M54.12 Radiculopathy, cervical region (principal)
CPT/HCPCS: 36000; 36415; 72040; 73030; 80053; 82550; 84484; 85025; 93005; 93041; 99284; A9270-GY

== ENCOUNTER 2019-09-07 21:27 | Emergency (ER) | payer BC ==
--- NOTE | 2019-09-07 21:31 | ERPHSYRPT ---
- History of Present Illness Time Seen by Provider: 09/07/19 21:31 Source: patient, family Exam Limitations: no limitations Physician History: 49 y/o white female with known left 9th rib fx(nondisplaced) dx here on 08/11/19 , presents with recurrent sharp left rib pain after reaching, stretching and twisting left upper torso attempting to get into a truck. pain sudden after a pop sensation. pt has nsaids and narcotic medication at home but did not go home first to take her medications, she came directly into ED. Timing/Duration: today Severity: moderate Modifying Factors: Improves With: movement Associated Symptoms: denies symptoms Allergies/Adverse Reactions: No Known Drug Allergies Allergy (Verified 09/07/19 21:38) Hx Tetanus, Diphtheria Vaccination/Date Given: No Hx Influenza Vaccination/Date Given: No Hx Pneumococcal Vaccination/Date Given: No - Review of Systems Constitutional: No Symptoms Eyes: No Symptoms Ears, Nose, & Throat: No Symptoms Respiratory: No Symptoms Cardiac: No Symptoms Abdominal/Gastrointestinal: No Symptoms Genitourinary Symptoms: No Symptoms Musculoskeletal: Other (left rib pain) Skin: No Symptoms Neurological: No Symptoms Psychological: No Symptoms Endocrine: No Symptoms Hematologic/Lymphatic: No Symptoms Immunological/Allergic: No Symptoms All Other Systems: Reviewed and Negative - Past Medical History Pertinent Past Medical History: Yes Neurological History: No Pertinent History ENT History: No Pertinent History Cardiac History: No Pertinent History Respiratory History: Pneumonia Endocrine Medical History: Diabetes Type II Musculoskeletal History: Fractures GI Medical History: GERD History: No Pertinent History Psycho-Social History: No Pertinent History Female Reproductive Disorders: No Pertinent History Other Medical History: lt elbow fx - Past Surgical History Past Surgical History: Yes Neuro Surgical History: No Pertinent History Cardiac: No Pertinent History Respiratory: No Pertinent History Gastrointestinal: No Pertinent History Genitourinary: No Pertinent History Musculoskeletal: No Pertinent History Female Surgical History: Section Other Surgical History: c section x4, D&C - Social History Smoking Status: Current every day smoker How long have you smoked: 33 yrs Exposure to second hand smoke: Yes Drug Use: none Patient Lives Alone: No - Nursing Vital Signs Nursing Vital Signs: Initial Vital Signs Temperature 98.0 F 09/07/19 21:31 Pulse Rate 98 H 09/07/19 21:31 Respiratory Rate 18 09/07/19 21:31 Blood Pressure 147/86 09/07/19 21:31 O2 Sat by Pulse Oximetry 96 09/07/19 21:31 Pain Scale Pain Intensity 8 - Physical Exam General Appearance: mild distress, alert, anxiety Eye Exam: PERRL/EOMI, eyes nml inspection Ears, Nose, Throat Exam: normal ENT inspection, moist mucous membranes Neck Exam: normal inspection, non-tender, supple, full range of motion Respiratory Exam: normal breath sounds, chest tenderness (left lateral rib), lungs clear, airway intact, No respiratory distress Cardiovascular Exam: regular rate/rhythm, normal heart sounds, normal peripheral pulses Gastrointestinal/Abdomen Exam: soft, normal bowel sounds, No tenderness Pelvic Exam: not done Rectal Exam: not done Back Exam: normal inspection, normal range of motion, No CVA tenderness Extremity Exam: normal inspection, normal range of motion, pelvis stable Neurologic Exam: alert, oriented x 3, cooperative, market research lead II-XII nml as tested Skin Exam: normal color, warm, dry Lymphatic Exam: No adenopathy SpO2 Interpretation: normal - Course Nursing assessment & vital signs reviewed: Yes Ordered Tests: Active Orders 24 hr Category Date Time Status CHEST 1 VIEW (PORTABLE) Stat Exams 09/07/19 21:45 Taken Medication Summary Generic Name Dose Route Start Last Admin Trade Name Freq PRN Reason Stop Dose Admin Prednisone 20 mg 09/08/19 21:47 09/07/19 22:10 Deltasone 20 Mg PO 09/08/19 21:48 20 mg STAT ONE Administration Discontinued Medications Generic Name Dose Route Start Last Admin Trade Name Freq PRN Reason Stop Dose Admin Lorazepam 0.5 mg 09/07/19 21:47 09/07/19 22:09 Ativan 2 Mg/1 Ml Vial IM 09/07/19 21:48 0.5 mg STAT ONE Administration Lorazepam Confirm 09/07/19 22:04 Ativan 2 Mg/1 Ml Vial Administered 09/07/19 22:05 Dose 2 mg .ROUTE .STK-MED ONE Oxycodone/Acetaminophen 1 tab 09/07/19 21:46 09/07/19 22:10 Oxycodone-Acetaminophen 10-325 PO 09/07/19 21:47 1 tab STAT STA Administration Oxycodone/Acetaminophen Confirm 09/07/19 22:05 Oxycodone-Acetaminophen 10-325 Administered 09/07/19 22:06 Dose 1 tab .ROUTE .STK-MED ONE Prednisone Confirm 09/07/19 22:04 Deltasone 20 Mg Administered 09/07/19 22:05 Dose 20 mg .ROUTE .STK-MED ONE - Progress Progress: improved Progress Note: 09/07/19 22:32 cxr-no acute rib fx. no infiltrate. healing left 9th rib Counseled pt/family regarding: diagnosis, need for follow-up, rad results - Departure Departure Disposition: Home Clinical Impression: Fracture of rib of left side with routine healing Condition: Stable Critical Care Time: No Referrals: DEA DOOLEY NP [Primary Care Provider] - Additional Instructions: follow up with primary doctor for further management. add ibuprofen or naproxen for pain. Prescriptions: Carisoprodol 350 mg [Soma 350 mg] 350 mg PO Q8H PRN PRN #10 tablet PRN Reason: Muscle Spasms Oxycodone HCl/Acetaminophen [Percocet 5-325 mg Tablet] 1 each PO Q8H PRN PRN #8 tablet MDD 3 PRN Reason: Pain
[2019-09-07 21:39] VITALS: O2SAT 96
[2019-09-07] MEDS ORDERED: OXYCODONE-ACETAMINOPHEN 10-325 PO STA (21:46)
[2019-09-07] MEDS ORDERED: Ativan 2 MG/1 ML VIAL IM ONE (21:47)
[2019-09-07] MEDS ORDERED: DELTASONE 20 MG ONE (22:04)
[2019-09-07] MEDS ORDERED: Ativan 2 MG/1 ML VIAL ONE (22:04)
[2019-09-07] MEDS ORDERED: OXYCODONE-ACETAMINOPHEN 10-325 ONE (22:05)
[2019-09-07 22:44] VITALS: BP 136/81; PULSE 84
--- NOTE | 2019-09-08 07:01 | XRAY ---
Indication: Left-sided pain. Comparison: August 11, 2019. Portable chest demonstrates new right upper lobe subsegmental atelectasis/scarring with stable incidental scattered calcified granulomas. No focal infiltrate, consolidation, or large effusion. Heart and mediastinal structures within normal limits. Bony thorax intact again with mild degenerative changes. Impression: Nonacute chest with chronic features.
[2019-09-08] MEDS ORDERED: DELTASONE 20 MG PO ONE (21:47)
== END 2019-09-07 22:44 | disposition home or self-care (01) ==
LOC: ED 21:27
DX: S22.32XA Fracture of one rib, left side, initial encounter for closed fracture (principal); X50.0XXA Overexertion from strenuous movement or load, initial encounter; R07.81 Pleurodynia
CPT/HCPCS: 71045; 96372; 99284; J2060; A9270-GY